=== PATIENT | male | born 1980 | race Caucasian/White ===

== ENCOUNTER 2018-12-03 13:09 | Emergency (ER) | payer OTHER ==
[~2018-12-03] VITALS: Ht 188 cm; Wt 97.5 kg
[2018-12-03 13:10] VITALS: BP 142/92; Ht 188 cm; Wt 97.5 kg
== END 2018-12-03 14:00 | disposition home or self-care (01) ==
LOC: ED 13:09
DX: Z77.21 Contact with and (suspected) exposure to potentially hazardous body fluids (principal)